=== PATIENT | female | born 1980 | race Caucasian/White ===

== ENCOUNTER 2022-07-24 15:31 | Inpatient (IN) | payer OTHER, SELFPAY ==
[2022-07-24 15:32] VITALS: BP 134/102; PULSE 123; RESP 19; TEMP 37.7; O2SAT 99; BMI 32.5
--- NOTE | 2022-07-24 16:38 | EX.ED.DYSGE1 ---
HPI <ROBERTO Mckinley - Last Filed: 07/24/22 19:52> History of Present Illness Chief Complaint: General Illness Narrative Narrative: Patient presenting today due to right upper quadrant pain that she has had since Wednesday. She also reports nausea and a fever over the past 2 days. She did see her PCP on Wednesday who ordered a right upper quadrant ultrasound that showed dilation of the common bile duct without any inflammation of the gallbladder or gallstones. She denies any history of biliary colic, prior abdominal surgery, and vomiting. She reports a PMH of hepatitis C. PFSH <ROBERTO Mckinley - Last Filed: 07/24/22 19:52> PFSH Medical History Abdominal pain Home Medications buprenorphine 8 mg-naloxone 2 mg sublingual film 2 film sublingual DAILY . 07/24/22 [History Last Taken 07/24/22] hydrochlorothiazide 25 mg tablet 25 mg PO DAILY HTN 07/24/22 [History Last Taken 07/23/22] ibuprofen 200 mg tablet 400 mg PO Q6H PRN Pain 07/24/22 [History Last Taken 07/24/22] Allergy/AdvReac Type Severity Reaction Status Date / Time No Known Allergies Allergy Verified 07/24/22 15:32 Social History Smoking Status: Unknown if ever smoked ROS <ROBERTO Mckinley - Last Filed: 07/24/22 19:52> ROS ED Constitutional Constitutional ED: Reports fever(s); Denies chills or sweats Cardiovascular Cardiovascular: Denies chest pain or palpitations Respiratory/Chest Respiratory/Chest: Denies cough or dyspnea Gastrointestinal Gastrointestinal: Reports abdominal pain and nausea; Denies vomiting Musculoskeletal Musculoskeletal: Denies arthralgias or myalgias Integumentary Denies abscess, Abrasions or rash Neurologic Neurologic: Denies weakness EXAM <ROBERTO Mckinley - Last Filed: 07/24/22 19:52> Physical Exam Const Vital Signs: 07/24/22 15:32 07/24/22 16:44 07/24/22 18:37 Temperature 99.8 F H 100.7 F H Temperature Source Temporal Temporal Pulse Rate 123 H 97 Respiratory Rate 19 H 18 Respiratory Effort Normal Non-Labored Respiratory Pattern Normal Blood Pressure 134/102 H 106/69 Blood Pressure Mean 112 81 Pulse Ox 99 98 Oxygen Delivery Method Room Air Room Air Positive well nourished, well developed and no apparent distress General Appearance ED: well developed HEENT Reports normocephalic and head/scalp atraumatic Mouth ED: Yes moist mucous membranes normal Eyes PERRL and EOMs intact bilaterally Neck full ROM and supple Chest Wall inspection of chest normal Resp normal respiratory effort and clear to auscultation bilaterally Cardio regular rate and regular rhythm GI non-distended and no masses GI Narrative: Right upper quadrant tenderness to palpation, no rigidity or guarding. Palpation: soft Back/Spine normal ROM and normal to inspection Extremity normal to inspection and full ROM Neuro oriented x3, CN's II-XII intact bilaterally, moves all extremities, no focal motor deficits and no sensory deficits noted Sensorium / Orientation: awake and alert Psych mental status grossly normal and thought process normal Skin no rashes or lesions noted and no wounds <Dr. Kaushik Mcpherson MD - Last Filed: 07/24/22 20:10> Physical Exam Const Vital Signs: 07/24/22 15:32 07/24/22 16:44 07/24/22 18:37 Temperature 99.8 F H 100.7 F H Temperature Source Temporal Temporal Pulse Rate 123 H 97 Respiratory Rate 19 H 18 Respiratory Effort Normal Non-Labored Respiratory Pattern Normal Blood Pressure 134/102 H 106/69 Blood Pressure Mean 112 81 Pulse Ox 99 98 Oxygen Delivery Method Room Air Room Air [facility] <ROBERTO Mckinley - Last Filed: 07/24/22 19:52> [facility] Narrative Medical decision making narrative: Patient presenting due to right upper quadrant abdominal pain she has had since Wednesday. She is slightly febrile here. Because we do not have access to the ultrasound that was performed at the clinic clinic, we will reobtain a right upper quadrant ultrasound which does show dilation of the common bile duct. I spoke to Dr. Rose, he recommended obtaining a CT scan of the abdomen pelvis to assess for pancreatitis. Patient has been given IV fluids, Zofran, and morphine. Labs obtained to rule out leukocytosis, anemia, electrolyte abnormality, and assess for elevated liver enzymes. CBC unremarkable, CMP shows a sodium 129, chloride 90, AST 128, ALT 114, alkaline phosphatase 153, bilirubin is WNL. She will be admitted to the hospital to have an MRCP and is comfortable with plan. I have personally performed a face to face assessment of the patient and have reviewed the ELIUD Note. I performed a substantive portion of the visit including all aspects of the following. My saenz findings include: History is remarkable for outpatient ultrasound which revealed a common bile duct of 10 mm. No stones were noted. There was no thickening of the gallbladder wall reportedly and no inflammation. Patient does have intolerance to greasy fried foods. There is family history cholelithiasis. She denies history of pancreatitis. She denies black or maroon-colored stool. She states she has not eaten in 2 days. Exam is remarkable for a BMI of 32.5. She appears uncomfortable. She is tachycardic. HEENT exam is remarkable dry mucosa. Heart is rapid and regular. There is no murmur, gallop or rub. Lungs are clear auscultation. Abdomen is marked for right upper quadrant pain with clinical Dunham sign. Temperature is elevated 99.8. She has had elevated temperatures over the past several days with a Tmax of 100.7. Medical Decision Making ultrasound was repeated since we have no access to the outpatient ultrasound that was done at outside facility. Blood work was obtained to assess for elevated bilirubin, alkaline phosphatase and transaminases. Since the common bile duct is dilated with no visible stone nor is or any evidence of cholelithiasis Dr. Rose was paged to discuss case and discuss ERCP versus MRCP with admission to medicine. Other additions or changes: Case was discussed with Dr. Rose. He requested a CAT scan to evaluate for evidence of pancreatitis. He is aware that the lipase is normal. Case was discussed with Dr. Macias who will admit at. Lab Data Attestation: I reviewed the patient's lab results. Labs: Laboratory Results - last 24 hr 07/24/22 07/24/22 07/24/22 16:50 16:50 16:50 WBC 4.4 RBC 4.64 Hgb 14.1 Hct 40.2 MCV 86.6 MCH 30.4 MCHC 35.1 RDW Std Deviation 38.7 RDW Coeff of Mila 12.2 Plt Count 199 MPV 9.0 Immature Gran % (Auto) 0.500 Neut % (Auto) 84.8 H Lymph % (Auto) 8.1 L [place] % (Auto) 6.1 Eos % (Auto) 0.0 Baso % (Auto) 0.5 Absolute Neuts (auto) 3.8 Absolute Lymphs (auto) 0.36 L Nucleated RBC % 0 Differential Comment SCANNED ESR Sodium 129 L Potassium 3.6 Chloride 95 L Carbon Dioxide 27.0 Anion Gap 7 BUN 8 Creatinine 0.89 Estim Creat Clear Calc 78.66 Est GFR (MDRD) Af Amer 91 Est GFR (MDRD) Non-Af 75 BUN/Creatinine Ratio 9.0 L Glucose 100 Lactic Acid Calcium 8.9 Magnesium Total Bilirubin 0.80 AST 128 H ALT 114 H Alkaline Phosphatase 153 H C-React Prot Ext Range Total Protein 7.8 Albumin 3.3 Globulin 4.5 H Albumin/Globulin Ratio 0.7 L Lipase 21 Serum , Qual NEGATIVE 07/24/22 07/24/22 07/24/22 16:50 16:50 16:50 WBC RBC Hgb Hct MCV MCH MCHC RDW Std Deviation RDW Coeff of Mila Plt Count MPV Immature Gran % (Auto) Neut % (Auto) Lymph % (Auto) [place] % (Auto) Eos % (Auto) Baso % (Auto) Absolute Neuts (auto) Absolute Lymphs (auto) Nucleated RBC % Differential Comment ESR 37 H Sodium Potassium Chloride Carbon Dioxide Anion Gap BUN Creatinine Estim Creat Clear Calc Est GFR (MDRD) Af Amer Est GFR (MDRD) Non-Af BUN/Creatinine Ratio Glucose Lactic Acid Calcium Magnesium 2.2 Total Bilirubin AST ALT Alkaline Phosphatase C-React Prot Ext Range 118.00 H Total Protein Albumin Globulin Albumin/Globulin Ratio Lipase Serum , Qual 07/24/22 18:30 WBC RBC Hgb Hct MCV MCH MCHC RDW Std Deviation RDW Coeff of Mila Plt Count MPV Immature Gran % (Auto) Neut % (Auto) Lymph % (Auto) [place] % (Auto) Eos % (Auto) Baso % (Auto) Absolute Neuts (auto) Absolute Lymphs (auto) Nucleated RBC % Differential Comment ESR Sodium Potassium Chloride Carbon Dioxide Anion Gap BUN Creatinine Estim Creat Clear Calc Est GFR (MDRD) Af Amer Est GFR (MDRD) Non-Af BUN/Creatinine Ratio Glucose Lactic Acid 0.6 Calcium Magnesium Total Bilirubin AST ALT Alkaline Phosphatase C-React Prot Ext Range Total Protein Albumin Globulin Albumin/Globulin Ratio Lipase Serum , Qual Radiography Diagnostic Testing: Clinical Impression(s) from Imaging Studies Gallbladder Ultrasound 07/24/22 17:04 IMPRESSION: There is dilation of the common bile duct. A common bile duct stone is not seen. The CBD diameter is 8.1 mm. Electronically Signed: Michele Stockton MD at 17:57 EDT , <Dr. Kaushik Mcpherson MD - Last Filed: 07/24/22 20:10> MDM MDM Narrative Medical decision making narrative: I have personally performed a face to face assessment of the patient and have reviewed the ELIUD Note. I performed a substantive portion of the visit including all aspects of the following. My saenz findings include: History is remarkable for outpatient ultrasound which revealed a common bile duct of 10 mm. No stones were noted. There was no thickening of the gallbladder wall reportedly and no inflammation. Patient does have intolerance to greasy fried foods. There is family history cholelithiasis. She denies history of pancreatitis. She denies black or maroon-colored stool. She states she has not eaten in 2 days. Exam is remarkable for a BMI of 32.5. She appears uncomfortable. She is tachycardic. HEENT exam is remarkable dry mucosa. Heart is rapid and regular. There is no murmur, gallop or rub. Lungs are clear auscultation. Abdomen is marked for right upper quadrant pain with clinical Dunham sign. Temperature is elevated 99.8. She has had elevated temperatures over the past several days with a Tmax of 100.7. Medical Decision Making ultrasound was repeated since we have no access to the outpatient ultrasound that was done at outside facility. Blood work was obtained to assess for elevated bilirubin, alkaline phosphatase and transaminases. Since the common bile duct is dilated with no visible stone nor is or any evidence of cholelithiasis Dr. Rose was paged to discuss case and discuss ERCP versus MRCP with admission to medicine. Other additions or changes: Case was discussed with Dr. Rose. He requested a CAT scan to evaluate for evidence of pancreatitis. He is aware that the lipase is normal. Case was discussed with Dr. Macias who will admit at. Lab Data Labs: Laboratory Results - last 24 hr 07/24/22 07/24/22 07/24/22 16:50 16:50 16:50 WBC 4.4 RBC 4.64 Hgb 14.1 Hct 40.2 MCV 86.6 MCH 30.4 MCHC 35.1 RDW Std Deviation 38.7 RDW Coeff of Mila 12.2 Plt Count 199 MPV 9.0 Immature Gran % (Auto) 0.500 Neut % (Auto) 84.8 H Lymph % (Auto) 8.1 L [place] % (Auto) 6.1 Eos % (Auto) 0.0 Baso % (Auto) 0.5 Absolute Neuts (auto) 3.8 Absolute Lymphs (auto) 0.36 L Nucleated RBC % 0 Differential Comment SCANNED ESR Sodium 129 L Potassium 3.6 Chloride 95 L Carbon Dioxide 27.0 Anion Gap 7 BUN 8 Creatinine 0.89 Estim Creat Clear Calc 78.66 Est GFR (MDRD) Af Amer 91 Est GFR (MDRD) Non-Af 75 BUN/Creatinine Ratio 9.0 L Glucose 100 Lactic Acid Calcium 8.9 Magnesium Total Bilirubin 0.80 AST 128 H ALT 114 H Alkaline Phosphatase 153 H C-React Prot Ext Range Total Protein 7.8 Albumin 3.3 Globulin 4.5 H Albumin/Globulin Ratio 0.7 L Lipase 21 Serum , Qual NEGATIVE 07/24/22 07/24/22 07/24/22 16:50 16:50 16:50 WBC RBC Hgb Hct MCV MCH MCHC RDW Std Deviation RDW Coeff of Mila Plt Count MPV Immature Gran % (Auto) Neut % (Auto) Lymph % (Auto) [place] % (Auto) Eos % (Auto) Baso % (Auto) Absolute Neuts (auto) Absolute Lymphs (auto) Nucleated RBC % Differential Comment ESR 37 H Sodium Potassium Chloride Carbon Dioxide Anion Gap BUN Creatinine Estim Creat Clear Calc Est GFR (MDRD) Af Amer Est GFR (MDRD) Non-Af BUN/Creatinine Ratio Glucose Lactic Acid Calcium Magnesium 2.2 Total Bilirubin AST ALT Alkaline Phosphatase C-React Prot Ext Range 118.00 H Total Protein Albumin Globulin Albumin/Globulin Ratio Lipase Serum , Qual 07/24/22 18:30 WBC RBC Hgb Hct MCV MCH MCHC RDW Std Deviation RDW Coeff of Mila Plt Count MPV Immature Gran % (Auto) Neut % (Auto) Lymph % (Auto) [place] % (Auto) Eos % (Auto) Baso % (Auto) Absolute Neuts (auto) Absolute Lymphs (auto) Nucleated RBC % Differential Comment ESR Sodium Potassium Chloride Carbon Dioxide Anion Gap BUN Creatinine Estim Creat Clear Calc Est GFR (MDRD) Af Amer Est GFR (MDRD) Non-Af BUN/Creatinine Ratio Glucose Lactic Acid 0.6 Calcium Magnesium Total Bilirubin AST ALT Alkaline Phosphatase C-React Prot Ext Range Total Protein Albumin Globulin Albumin/Globulin Ratio Lipase Serum , Qual Radiography Diagnostic Testing: Clinical Impression(s) from Imaging Studies Gallbladder Ultrasound 07/24/22 17:04 IMPRESSION: There is dilation of the common bile duct. A common bile duct stone is not seen. The CBD diameter is 8.1 mm. Electronically Signed: Michele Stockton MD at 17:57 EDT , Management Discussion w/another healthcare provider: Hospitalist (Documented the MDM portion of the chart) and [employer] (Documented in the MDM portion of the chart) Discharge Plan Dx/Rx/DC Orders Clinical Impression: Elevated liver enzymes, Abdominal pain, Acute hyponatremia, Common bile duct dilation Disposition Disposition: Acute Care Hospital [facility]
--- NOTE | 2022-07-24 17:04 | US_ITS ---
STUDY: ABDOMINAL ULTRASOUND - RIGHT UPPER QUADRANT REASON FOR VISIT: Female, 41 years old. ABDOMEN PAIN RUQ pain TECHNIQUE: Ultrasound evaluation of the right upper quadrant was performed with real-time and static armendariz-scale imaging. TECHNICAL QUALITY: Adequate. COMPARISON: None FINDINGS: Liver: There is normal echogenicity of the liver. The bile ducts are within normal limits. There is hepatic color flow. The direction of portal flow is hepatopetal. There is no demonstrated mass lesion. Gallbladder: Normal distended gallbladder. The gallbladder wall measures 1.8 mm. There is a negative sonographic Dunham''s sign. There is no pericholecystic fluid. There are no gallstones. Common Bile Duct (C.B.D.): The common bile duct measures ( in mm): 8.1 Pancreas: Normal size of the head, body of the pancreas. There is normal echogenicity of the pancreas. There is no demonstrated pancreatic mass or cyst. Right Kidney: Normal size of the right kidney. The right kidney measures 9.9 cm. . Normal renal cortex. There is no demonstrated renal mass or cyst. There is no right hydronephrosis. Aorta: It is not visualized. There is too much overlying bowel gas. . US/Gallbladder IMPRESSION: There is dilation of the common bile duct. A common bile duct stone is not seen. The CBD diameter is 8.1 mm. Electronically Signed: Michele Stockton MD at 17:57 EDT ,
[2022-07-24 17:12] LABS: Absolute Lymphocyte Count 0.36 X10^3/uL (0.83-4.51); Absolute Neutrophil Count 3.8 X10^3/uL (2.0-7.7); Basophil# 0.02 X10^3/uL; Basophil% 0.5 % (0-1); Hematocrit 40.2 % (37-47); Hemoglobin 14.1 g/dL (12.0-15.0); Lymphocyte # 0.36 X10^3/ul (0.83-4.51); Lymphocyte % 8.1 % (19-41); Mean Corp Hgb Conc 35.1 g/dL (32-36); Mean Corpuscular Hgb 30.4 pg (27.0-32.0); Mean Corpuscular Volume 86.6 fL (81-99); Monocyte# 0.27 X10^3/uL; Monocyte% 6.1 % (0-10); NRBC Flagged by Analyzer 0 % (0-5); Neutrophil # 3.77 X10^3/uL (2.7-7.7); Neutrophil % 84.8 % (47-70); POSITIVE DIFFERENTIAL YES; Platelet Count 199 K/mm3 (150-450); RBC Distribution Width CV 12.2 % (11.6-14.6); RBC Distribution Width SD 38.7 fl (35.1-43.9); Red Blood Count 4.64 M/mm3 (4.2-5.4); White Blood Count 4.4 K/mm3 (4.4-11.0)
[2022-07-24 17:14] LABS: Differential Indicated SCAN CRITERIA MET
[2022-07-24] MEDS: Ondansetron 4 MG/2 ML Vial IV (17:17)
[2022-07-24] MEDS: Morphine 4 MG/ML Syringe IV (17:17)
[2022-07-24 17:24] LABS: ALB/GLOB Ratio 0.7 RATIO (0.9-2.4); AST(SGOT) 128 U/L (15-37); Alanine Aminotransfer ALT/SGPT 114 U/L (13-56); Albumin, Serum 3.3 g/dL (3.2-5.0); Alkaline Phosphatase 153 U/L (45-117); Anion Gap 7 (5-15); BUN 8 mg/dL (7-18); Calcium,Total 8.9 mg/dL (8.5-10.1); Chloride 95 mmol/L (98-107); Creatinine, Serum 0.89 mg/dL (0.55-1.02); EST Glomerular Filtration Rate 75 mL/min (>60); Est Glom Filt Rate - Afr Amer 91 mL/min (>60); Estimated Creatinine Clearance 78.66 ml/min; Globulin 4.5 g/dL (2.2-4.2); Glucose 100 mg/dL (74-106); Lipase 21 U/L (13-75); Potassium 3.6 mmol/L (3.5-5.1); Protein, Total 7.8 g/dL (6.4-8.2); Sodium Level 129 mmol/L (136-145)
[2022-07-24 17:49] LABS: Differential Comment SCANNED
--- NOTE | 2022-07-24 18:16 | CT_ITS ---
STUDY: CT Abdomen And Pelvis W/ Contrast Injection 07/24/2022 8:20 PM REASON FOR EXAM: Female, 41 years old. ABDOMINAL PAIN abdominal pain TECHNIQUE: Transaxial images were obtained without oral contrast, and IV 100mL [id number] intravenous contrast. Individualized dose optimization techniques were used for this CT. COMPARISON: Ultrasound done earlier today. FINDINGS: The visualized lung bases are unremarkable. The visualized portions of the heart are within normal limits. There is intrahepatic ductal dilation. Unremarkable gallbladder and extrahepatic biliary system. Unremarkable spleen. Unremarkable pancreas.There is dilation of the common bile duct. A common bile duct stone is not seen. The CBD diameter is 7.2 mm. Unremarkable bilateral adrenal glands. No acute findings of the right kidney. No acute findings of the left kidney. Focal wall thickening of the antrum of stomach. This can suggest a gastritis. Unremarkable small intestine. Unremarkable colon. The appendix is visualized and appears unremarkable. Subcentimeter lymph nodes around the pancreas and stomach. There are no acute findings of the abdominal aorta. Unremarkable inferior vena cava. Subcentimeter mesenteric lymph nodes. Unremarkable urinary bladder. 39mm exophytic lesion extending off the fundus of the uterus. This has the appearance of a fibroid. An intrauterine device is identified within the uterus. 10mm fatty lesion in the right ovary suggesting a dermoid. It is -21HU. There is an umbilical hernia containing fat. There are bilateral pars articularis defects at L5-S1. There is a Grade 1 anterolisthesis of L5 on S1. CT/Abdomen/Pelvis W IV Cont ONLY IMPRESSION: (NOT LISTED IN ORDER OF SIGNIFICANCE) Gastritis. There is intrahepatic ductal dilation. There are no gallstones. There is dilation of the common bile duct. A common bile duct stone is not seen. The CBD diameter is 7.2 mm. MRCP can further evaluate. 10mm fatty lesion in the right ovary suggesting a dermoid. Fibroid uterus. Other findings as above. Electronically Signed: Michele Stockton MD at 20:25 EDT ,
[2022-07-24] MEDS: 0.9% Normal Saline 1,000 ML 999 ML IV (18:29)
[2022-07-24 18:37] VITALS: BP 106/69; PULSE 97; RESP 18; TEMP 38.2; O2SAT 98
[2022-07-24 18:55] LABS: Internal QC Validated? YES +Cl - CLEAR BKGD; Pregnancy, Serum, hCG Quali. NEGATIVE Negative
--- NOTE | 2022-07-24 18:57 | PCM.HP.STD ---
HPI - General General Date of Admission: 07/24/22 Date of Service: 07/24/22 Chief Complaint: Abdominal pain, nausea for last 5 days. Constipation and fever HPI Narrative SEBASTIÁN LEE, is a 41 F started having nausea and sudden onset right upper quadrant abdominal pain on 07/20/2022. She denies prior history of gallbladder or hepatobiliary or pancreatic issues or abdominal pain like this in the past. She was diagnosed with hepatitis C about 10 years ago. She had history of IVDA and she quit 14 years ago. She is reluctant talking about that. Abdominal pain is started about 10/density, right subcostal margin and then became generalized and moved to the right upper chest. She claims pain is constant but has eased over last 5 days. She also having fever for last 3 to 4 days and she measures it. She said it stays between 99.7 to 100 ?F. She also has associated nausea but denies vomiting, hematemesis melena. She has constipation has not moved bowels since 07/19/2022. Patient recently started taking ibuprofen for abdominal pain but is not getting better. In ED, she was tachycardic but afebrile. Liver chemistry reviewed and shows elevated liver enzymes, total bilirubin and alkaline phosphatase. She had ultrasound as an outpatient results dilated CBD 10 mm but no stone and was sent to ED for further work-up. Past medical history: Hypertension on HCTZ. IVDA/substance use disorder in the past on buprenorphine. Social history: She denies chronic alcohol use. She denies a smoking. History of polysubstance use as mentioned above. Family history denies history of hepatobiliary cancer or chronic pancreatitis in the family. On her mother side, she had cholecystectomy in few family members. ON LICENSE OF [facility] Medical History Abdominal pain Home Medications buprenorphine 8 mg-naloxone 2 mg sublingual film 2 film sublingual DAILY . 07/24/22 [History Last Taken 07/24/22] hydrochlorothiazide 25 mg tablet 25 mg PO DAILY HTN 07/24/22 [History Last Taken 07/23/22] ibuprofen 200 mg tablet 400 mg PO Q6H PRN Pain 07/24/22 [History Last Taken 07/24/22] Allergy/AdvReac Type Severity Reaction Status Date / Time No Known Allergies Allergy Verified 07/24/22 15:32 Social History Smoking Status: Unknown if ever smoked ROS ROS Narrative Constitutional: Reports fatigue and weakness. Abdominal pain and fever. HEENT: Reports systems reviewed and no addt'l complaints, except as documented Respiratory/Chest: No acute shortness of breath or respiratory distress or wheezing. CVS: No chest pain tightness. Denies coronary artery disease or chronic cardiopulmonary disease. Gastrointestinal: As described in HPI. Genitourinary: No hematuria. Denies burning urination or new urinary tract symptoms Musculoskeletal: Denies acute joint pain or limited range of motion. No acute injury Neurologic: Denies seizure-like symptoms. skin: No ulcer. No rash Endocrinology: Reports systems reviewed and no addt'l complaints, except as documented Hematologic/Lymphatic: Reports systems reviewed and no addt'l complaints, except as documented Rest 14 ROS are negative except as mentioned in HPI Vital Signs Vital Signs Vital Signs: 07/24/22 15:32 07/24/22 16:44 07/24/22 18:37 Temperature 99.8 F H 100.7 F H Temperature Source Temporal Temporal Pulse Rate 123 H 97 Respiratory Rate 19 H 18 Respiratory Effort Normal Non-Labored Respiratory Pattern Normal Blood Pressure 134/102 H 106/69 Blood Pressure Mean 112 81 Pulse Ox 99 98 Oxygen Delivery Method Room Air Room Air Weight Weight: 201 lb 6.4 oz Body Mass Index (BMI) 32.5 Physical Exam Narrative Physical exam General: Alert, Oriented x3, Cooperative HEENT: No icterus. Atraumatic, PERRLA, EOMI, Normocephalic Oral: Oral mucosa dry. No Gingival or Mucosal Lesions/ Ulcerations Neck: Supple, No JVD, Negative Carotid Bruits Lungs: Air entry diminished in bilateral lung bases. No crepitation/rhonchi Cardiovascular: Sinus tachycardia, Normal S1, Normal S2, No murmurs Abdomen: Bowel Sounds Present, Soft, tenderness present over right upper quadrant under rib. Liver not enlarged. No palpable mass. No palpable thrill/ascites. No splenomegaly. : No renal angle tenderness. No suprapubic tenderness. Extremities: No edema, Capillary Refill Less than 3 Seconds Skin: No rashes, No breakdown Musculoskeletal: No Tenderness to Palpation of Joints or Extremities Neurological: Cranial nerves II-XII grossly intact, DTR 2+/4 and Symmetrical, Neuro grossly intact Psych/Mental Status: Flat affect. Results Lab / Micro Data Result Diagrams: 07/24/22 16:50 07/24/22 16:50 Labs: Laboratory Results - last 24 hr 07/24/22 16:50: WBC 4.4, RBC 4.64, Hgb 14.1, Hct 40.2, MCV 86.6, MCH 30.4, MCHC 35.1, RDW Std Deviation 38.7, RDW Coeff of Mila 12.2, Plt Count 199, MPV 9.0, Immature Gran % (Auto) 0.500, Neut % (Auto) 84.8 H, Lymph % (Auto) 8.1 L, [place] % (Auto) 6.1, Eos % (Auto) 0.0, Baso % (Auto) 0.5, Absolute Neuts (auto) 3.8, Absolute Lymphs (auto) 0.36 L, Nucleated RBC % 0, Differential Comment SCANNED 07/24/22 16:50: Sodium 129 L, Potassium 3.6, Chloride 95 L, Carbon Dioxide 27.0, Anion Gap 7, BUN 8, Creatinine 0.89, Estim Creat Clear Calc 78.66, Est GFR (MDRD) Af Amer 91, Est GFR (MDRD) Non-Af 75, BUN/Creatinine Ratio 9.0 L, Glucose 100, Calcium 8.9, Total Bilirubin 0.80, AST 128 H, ALT 114 H, Alkaline Phosphatase 153 H, Total Protein 7.8, Albumin 3.3, Globulin 4.5 H, Albumin/Globulin Ratio 0.7 L, Lipase 21 07/24/22 16:50: Serum , Qual NEGATIVE Radiology Impression Gallbladder Ultrasound 07/24/22 17:04 IMPRESSION: There is dilation of the common bile duct. A common bile duct stone is not seen. The CBD diameter is 8.1 mm. Electronically Signed: Michele Stockton MD at 17:57 EDT , Assessment & Plan Assessment/Plan (1) Cholangitis: (2) Acute liver disease: PLAN: Plan This is 41-year-old female being admitted for work-up of acute liver injury and dilated CBD. 1. Acute liver injury with suspected acute cholangitis: Patient has mixed hepatocellular and cholestatic liver injury pattern. No prior liver chemistry to compare. Patient is being admitted to MedSurg floor. With fever and elevated liver chemistries high suspicion of acute cholangitis. Serum magnesium normal. Lactic acid 0.6. Lipase normal. Serum test negative. ESR and CRP elevated. IV fluid normal saline +20 mEq KCl. Monitor abdominal pain, liver chemistry electrolytes daily. GI consult. Right upper quadrant shows normal echogenicity of liver, bile duct within normal limit, hepatopetal flow and no demonstrated mass lesion. GB wall 1.8 mm, negative sonographic Dunham sign. No pericholecystic fluid or no gallstones. CBD dilated 8.[address] abdomen pelvis with IV contrast ordered by ED physician. MRCP ordered for tomorrow AM. Avoid hepatotoxic medications including NSAIDs. She took ibuprofen at home for pain control. Tylenol only for fever. Opioids/morphine for pain control. 2. Hypotonic hypovolemic hyponatremia: Serum sodium is 129. Patient looks dehydrated. On IV fluid normal saline. K3.6 on low normal limit. K. Dur 1 dose ordered. Chronic hepatitis C: She is stated she has never been treated for. Outpatient follow-up and management. 3. Past history of IVDA: She quit substance use about 14 years ago. VTE prophylaxis low risk. Bilateral SCDs Full code. 07/24/22 16:50: WBC 4.4, RBC 4.64, Hgb 14.1, Hct 40.2, MCV 86.6, MCH 30.4, MCHC 35.1, RDW Std Deviation 38.7, RDW Coeff of Mila 12.2, Plt Count 199, MPV 9.0, Immature Gran % (Auto) 0.500, Neut % (Auto) 84.8 H, Lymph % (Auto) 8.1 L, [place] % (Auto) 6.1, Eos % (Auto) 0.0, Baso % (Auto) 0.5, Absolute Neuts (auto) 3.8, Absolute Lymphs (auto) 0.36 L, Nucleated RBC % 0, Differential Comment SCANNED 07/24/22 16:50: Sodium 129 L, Potassium 3.6, Chloride 95 L, Carbon Dioxide 27.0, Anion Gap 7, BUN 8, Creatinine 0.89, Estim Creat Clear Calc 78.66, Est GFR (MDRD) Af Amer 91, Est GFR (MDRD) Non-Af 75, BUN/Creatinine Ratio 9.0 L, Glucose 100, Calcium 8.9, Total Bilirubin 0.80, AST 128 H, ALT 114 H, Alkaline Phosphatase 153 H, Total Protein 7.8, Albumin 3.3, Globulin 4.5 H, Albumin/Globulin Ratio 0.7 L, Lipase 21 07/24/22 16:50: Serum , Qual NEGATIVE 07/24/22 16:50: ESR 37 H 07/24/22 16:50: C-React Prot Ext Range 118.00 H 07/24/22 16:50: Magnesium 2.2 07/24/22 18:30: Lactic Acid 0.6
[2022-07-24 18:59] VITALS: BP 106/69; PULSE 97; RESP 18; TEMP 38.2; O2SAT 98
[2022-07-24 19:05] LABS: Erythrocyte Sedimentation Rate 37 mm/hr (0-30)
[2022-07-24 19:11] LABS: Lactic Acid 0.6 mmol/L (0.4-1.9)
[2022-07-24 19:21] LABS: Magnesium 2.2 mg/dL (1.6-2.6)
[2022-07-24 20:52] VITALS: BP 98/63; PULSE 94; RESP 16; TEMP 38.2; O2SAT 99
[2022-07-24 21:07] VITALS: BMI 32.5
--- NOTE | 2022-07-24 21:16 | CON.PCM.GI_ITS ---
HPI Consult Data Date of Consult: 07/24/22 HPI Narrative Reason for Consultation: Choledocholithiasis HPI Narrative: SEBASTIÁN LEE, is a 41 F who presented to the ED having nausea and sudden onset right upper quadrant abdominal pain on 07/20/2022.? She denies prior history of gallbladder or hepatobiliary or pancreatic issues or abdominal pain like this in the past.? She was diagnosed with hepatitis C about 10 years ago.? She had history of IVDA and she quit 14 years ago.? She is reluctant talking about that. Abdominal pain is started about 10/density, right subcostal margin and then became generalized and moved to the right upper chest.? She claims pain is constant but has eased over last 5 days.? She also having fever for last 3 to 4 days and she measures it.? She said it stays between 99.7 to 100 ?F.? She also has associated nausea but denies vomiting, hematemesis melena.? She has constipation has not moved bowels since 07/19/2022. Patient recently started taking ibuprofen for abdominal pain but is not getting better. In ED, she was tachycardic but afebrile.? Liver chemistry reviewed and shows elevated liver enzymes, total bilirubin and alkaline phosphatase. She had ultrasound as an outpatient results dilated CBD 10 mm but no stone and was sent to ED for further work-up. [facility] Medical History Abdominal pain Home Medications buprenorphine 8 mg-naloxone 2 mg sublingual film 2 film sublingual DAILY . 07/24/22 [History Last Taken 07/24/22] hydrochlorothiazide 25 mg tablet 25 mg PO DAILY HTN 07/24/22 [History Last Taken 07/23/22] ibuprofen 200 mg tablet 400 mg PO Q6H PRN Pain 07/24/22 [History Last Taken 07/24/22] Allergy/AdvReac Type Severity Reaction Status Date / Time No Known Allergies Allergy Verified 07/24/22 15:32 Social History Smoking Status: Unknown if ever smoked ROS ROS Narrative Constitutional: Reports fatigue and weakness. Abdominal pain and fever. HEENT: Reports systems reviewed and no addt'l complaints, except as documented Respiratory/Chest: No acute shortness of breath or respiratory distress or wheezing. CVS: No chest pain tightness. Denies coronary artery disease or chronic cardiopulmonary disease. Gastrointestinal: As described in HPI. Genitourinary: No hematuria. Denies burning urination or new urinary tract symptoms Musculoskeletal: Denies acute joint pain or limited range of motion. No acute injury Neurologic: Denies seizure-like symptoms. skin: No ulcer. No rash Endocrinology: Reports systems reviewed and no addt'l complaints, except as documented Hematologic/Lymphatic: Reports systems reviewed and no addt'l complaints, except as documented Rest 14 ROS are negative except as mentioned in HPI Physical Exam Narrative General: Alert, Oriented x3, Cooperative, No apparent distress HEENT: Atraumatic, PERRLA, EOMI, Normocephalic Oral: Moist Mucosa Neck: Supple, No JVD Lungs: Clear to auscultation, Normal air movement, No rhonchi, No wheeze, No rales Cardiovascular: Regular rate, Regular Rhythm, Normal S1, Normal S2, No murmurs Abdomen: Soft, Non Tender, Non-Distended, No Hepato-splenomegaly Extremities: No edema, Capillary Refill Less than 3 Seconds Skin: No rashes, No breakdown Musculoskeletal: No Tenderness to Palpation of Joints or Extremities Neurological: Cranial nerves II-XII grossly intact, Motor Exam 5/5 strength throughout, Sensory exam intact to light touch and pain Psych/Mental Status: Flat Lab / Micro Data Result Diagrams: 07/25/22 05:54 07/25/22 05:54 Labs: Laboratory Results - last 24 hr 07/25/22 05:54: WBC 4.2 L, RBC 4.19 L, Hgb 12.6, Hct 36.4 L, MCV 86.9, MCH 30.1, MCHC 34.6, RDW Std Deviation 39.8, RDW Coeff of Mila 12.4, Plt Count 182, MPV 9.1, Immature Gran % (Auto) 0.500, Neut % (Auto) 78.9 H, Lymph % (Auto) 10.9 L, [place] % (Auto) 9.3, Eos % (Auto) 0.2, Baso % (Auto) 0.2, Absolute Neuts (auto) 3.3, Absolute Lymphs (auto) 0.46 L, Nucleated RBC % 0, Differential Comment SCANNED, Diff Path Review May foll 06/10/23 05:54: Sodium 136, Potassium 3.8, Chloride 105, Carbon Dioxide 26.0, Anion Gap 5, BUN 6 L, Creatinine 0.63, Estim Creat Clear Calc 111.12, Est GFR (MDRD) Af Amer 135, Est GFR (MDRD) Non-Af 112, BUN/Creatinine Ratio 9.6 L, Glucose 94, Calcium 8.2 L, Total Bilirubin 0.90, AST 151 H, ALT 119 H, Alkaline Phosphatase 150 H, Total Protein 6.3 L, Albumin 2.7 L, Globulin 3.6, Albumin/Globulin Ratio 0.8 L Radiology Impression MRCP 07/25/22 05:55 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 No stricture or stone. Electronically Signed: Eulogio Urbina MD at 13:27 EDT , Assessment & Plan Assessment/Plan (1) Cholangitis: (2) Acute liver disease: PLAN: Plan This is 41-year-old female being admitted for work-up of acute liver injury and dilated CBD. 1. Acute liver injury with suspected acute cholangitis: Patient has mixed hepatocellular and cholestatic liver injury pattern. No prior liver chemistry to compare. Patient is being admitted to MedSurg floor. With fever and elevated liver chemistries high suspicion of acute cholangitis. Serum magnesium normal. Lactic acid 0.6. Lipase normal. Serum test negative. ESR and CRP elevated. IV fluid normal saline +20 mEq KCl. Monitor abdominal pain, liver chemistry electrolytes daily. GI consult. Right upper quadrant shows normal echogenicity of liver, bile duct within normal limit, hepatopetal flow and no demonstrated mass lesion. GB wall 1.8 mm, negative sonographic Dunham sign. No pericholecystic fluid or no gallstones. CBD dilated 8.[address] abdomen pelvis with IV contrast ordered by ED physician. MRCP ordered for tomorrow AM. Avoid hepatotoxic medications including NSAIDs. She took ibuprofen at home for pain control. Tylenol only for fever. Opioids/morphine for pain control. 2. Hypotonic hypovolemic hyponatremia: Serum sodium is 129. Patient looks dehydrated. On IV fluid normal saline. K3.6 on low normal limit. K. Dur 1 dose ordered. Chronic hepatitis C: She is stated she has never been treated for. Outpatient follow-up and management. 3. Past history of IVDA: She quit substance use about 14 years ago. Charges/Coding Visit Charges Inpatient E&M: 64538 Init Hosp L3
[2022-07-24 21:21] VITALS: BP 127/68; PULSE 98; RESP 18; TEMP 38.7; O2SAT 94
[2022-07-24] MEDS: Acetaminophen 325 MG Tablet 650 MG PO (23:01)
[2022-07-24] MEDS: Potassium Chloride Oral Tablet 20 MEQ 40 MEQ PO (23:02)
[2022-07-25] MEDS: Ondansetron 4 MG/2 ML Vial IV ×5 (00:19→23:58)
[2022-07-25] MEDS: Morphine 4 MG/ML Syringe IV (00:19)
[2022-07-25] MEDS: KCL 20MEQ in 0.9% NS 20 MEQ/1,000 ML IV.SOLN. 100 MEQ IV ×2 (00:23→11:49)
[2022-07-25] MEDS: 0.9% Saline Lock 10 ML Syringe IV ×4 (00:24→18:41)
[2022-07-25 00:43] VITALS: BP 121/75; PULSE 96; RESP 18; TEMP 37.3; O2SAT 96
[2022-07-25 03:30] VITALS: BP 104/77; PULSE 84; RESP 18; TEMP 36.7; O2SAT 96
--- NOTE | 2022-07-25 05:55 | MRI_ITS ---
STUDY: MR CHOLANGIOPANCREATOGRAPHY (MRCP) REASON FOR EXAM: Female, 41 years old. Dilated CBD without stone, ruq pain TECHNIQUE: Standard MRCP technique was utilized. 3-D reconstructions were performed. COMPARISON: CT and ultrasound 07/24/2022 FINDINGS: Gall Bladder: Normal with no distention or demonstrated fixed intraluminal filling defect. Cystic duct: Normal with no demonstrated fixed filling defect. Intrahepatic ducts: Normal visualized intrahepatic ducts with no demonstrated fixed filling defect, dilation or stricture. Common hepatic duct: Fusiform dilatation measuring up to 8 mm in diameter likely consistent with a type I choledochal cyst. No stricture or filling defect to suggest stone. Common bile duct: Normal with no demonstrated fixed filling defect, dilation or stricture. Pancreatic duct: Normal with no demonstrated fixed filling defect, dilation or stricture. 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 No stricture or stone. Electronically Signed: Eulogio Urbina MD at 13:27 EDT ,
--- NOTE | 2022-07-25 05:55 | EKG12_ITS ---
Test Reason : AM EKG Blood Pressure : / mmHG Vent. Rate : 084 BPM Atrial Rate : 084 BPM P-R Int : 206 ms QRS Dur : 090 ms QT Int : 404 ms P-R-T Axes : 050 -09 009 degrees QTc Int : 477 ms Normal sinus rhythm Normal ECG No previous ECGs available Confirmed by SHELDON PERDOMO, JIE ([id number]), society editor XU GARCES ([id number]) on 07/28/2022 9:44:41 AM Referred By: AWA Confirmed By:JIE CHUNG MD
[2022-07-25 06:48] LABS: Absolute Lymphocyte Count 0.46 X10^3/uL (0.83-4.51); Absolute Neutrophil Count 3.3 X10^3/uL (2.0-7.7); Basophil# 0.01 X10^3/uL; Basophil% 0.2 % (0-1); Eosinophil# 0.01 X10^3/uL; Eosinophils% 0.2 % (0-5); Hematocrit 36.4 % (37-47); Hemoglobin 12.6 g/dL (12.0-15.0); Lymphocyte # 0.46 X10^3/ul (0.83-4.51); Lymphocyte % 10.9 % (19-41); Mean Corp Hgb Conc 34.6 g/dL (32-36); Mean Corpuscular Hgb 30.1 pg (27.0-32.0); Mean Corpuscular Volume 86.9 fL (81-99); Mean Platelet Vol. 9.1 fl (6.2-12.0); Monocyte# 0.39 X10^3/uL; Monocyte% 9.3 % (0-10); NRBC Flagged by Analyzer 0 % (0-5); Neutrophil # 3.32 X10^3/uL (2.7-7.7); Neutrophil % 78.9 % (47-70); POSITIVE DIFFERENTIAL YES; Platelet Count 182 K/mm3 (150-450); RBC Distribution Width CV 12.4 % (11.6-14.6); RBC Distribution Width SD 39.8 fl (35.1-43.9); Red Blood Count 4.19 M/mm3 (4.2-5.4); White Blood Count 4.2 K/mm3 (4.4-11.0)
[2022-07-25 07:00] LABS: Differential Indicated SCAN CRITERIA MET
[2022-07-25 07:23] LABS: ALB/GLOB Ratio 0.8 RATIO (0.9-2.4); AST(SGOT) 151 U/L (15-37); Alanine Aminotransfer ALT/SGPT 119 U/L (13-56); Albumin, Serum 2.7 g/dL (3.2-5.0); Alkaline Phosphatase 150 U/L (45-117); Anion Gap 5 (5-15); BUN 6 mg/dL (7-18); BUN/Creat Ratio 9.6 RATIO (10-20); Calcium,Total 8.2 mg/dL (8.5-10.1); Chloride 105 mmol/L (98-107); Creatinine, Serum 0.63 mg/dL (0.55-1.02); EST Glomerular Filtration Rate 112 mL/min (>60); Est Glom Filt Rate - Afr Amer 135 mL/min (>60); Estimated Creatinine Clearance 111.12 ml/min; Globulin 3.6 g/dL (2.2-4.2); Glucose 94 mg/dL (74-106); Potassium 3.8 mmol/L (3.5-5.1); Protein, Total 6.3 g/dL (6.4-8.2); Sodium Level 136 mmol/L (136-145)
[2022-07-25] MEDS: hydroCHLOROthiazide 25 MG Tablet PO (08:43)
[2022-07-25] MEDS: Acetaminophen 325 MG Tablet 650 MG PO ×2 (08:44→16:13)
[2022-07-25 08:50] VITALS: BP 116/68; PULSE 77; RESP 18; TEMP 36.9; O2SAT 96
[2022-07-25 09:00] LABS: Differential Comment SCANNED
--- NOTE | 2022-07-25 09:38 | PCM.PN.HOSP ---
Subjective Subjective Abdominal pain is improved. MRI is pending for today Objective Data Objective Data Vital Signs: Vital Signs Temp Pulse Resp BP Pulse Ox O2 Del Method 98.5 F 77 18 116/68 96 Room Air 07/25/22 08:50 07/25/22 08:50 07/25/22 08:50 07/25/22 08:50 07/25/22 08:50 07/25/22 08:50 Oxygen Delivery Method Room Air Weight: 201 lb 6.4 oz Body Mass Index (BMI) 32.5 Intake & Output: Intake and Output for Last 24 Hours 07/24/22 07/25/22 07/26/22 03:59 03:59 03:59 Intake Total 1050 / 1050 Balance 1050 / 1050 Lab / Micro Data Result Diagrams: 07/25/22 05:54 07/25/22 05:54 Labs: Laboratory Results - last 24 hr 07/24/22 16:50: WBC 4.4, RBC 4.64, Hgb 14.1, Hct 40.2, MCV 86.6, MCH 30.4, MCHC 35.1, RDW Std Deviation 38.7, RDW Coeff of Mila 12.2, Plt Count 199, MPV 9.0, Immature Gran % (Auto) 0.500, Neut % (Auto) 84.8 H, Lymph % (Auto) 8.1 L, [place] % (Auto) 6.1, Eos % (Auto) 0.0, Baso % (Auto) 0.5, Absolute Neuts (auto) 3.8, Absolute Lymphs (auto) 0.36 L, Nucleated RBC % 0, Differential Comment SCANNED 07/24/22 16:50: Sodium 129 L, Potassium 3.6, Chloride 95 L, Carbon Dioxide 27.0, Anion Gap 7, BUN 8, Creatinine 0.89, Estim Creat Clear Calc 78.66, Est GFR (MDRD) Af Amer 91, Est GFR (MDRD) Non-Af 75, BUN/Creatinine Ratio 9.0 L, Glucose 100, Calcium 8.9, Total Bilirubin 0.80, AST 128 H, ALT 114 H, Alkaline Phosphatase 153 H, Total Protein 7.8, Albumin 3.3, Globulin 4.5 H, Albumin/Globulin Ratio 0.7 L, Lipase 21 07/24/22 16:50: Serum , Qual NEGATIVE 07/24/22 16:50: ESR 37 H 07/24/22 16:50: C-React Prot Ext Range 118.00 H 07/24/22 16:50: Magnesium 2.2 07/24/22 18:30: Lactic Acid 0.6 07/25/22 05:54: WBC 4.2 L, RBC 4.19 L, Hgb 12.6, Hct 36.4 L, MCV 86.9, MCH 30.1, MCHC 34.6, RDW Std Deviation 39.8, RDW Coeff of Mila 12.4, Plt Count 182, MPV 9.1, Immature Gran % (Auto) 0.500, Neut % (Auto) 78.9 H, Lymph % (Auto) 10.9 L, [place] % (Auto) 9.3, Eos % (Auto) 0.2, Baso % (Auto) 0.2, Absolute Neuts (auto) 3.3, Absolute Lymphs (auto) 0.46 L, Nucleated RBC % 0, Differential Comment SCANNED, Diff Path Review June07/25/22 05:54: Sodium 136, Potassium 3.8, Chloride 105, Carbon Dioxide 26.0, Anion Gap 5, BUN 6 L, Creatinine 0.63, Estim Creat Clear Calc 111.12, Est GFR (MDRD) Af Amer 135, Est GFR (MDRD) Non-Af 112, BUN/Creatinine Ratio 9.6 L, Glucose 94, Calcium 8.2 L, Total Bilirubin 0.90, AST 151 H, ALT 119 H, Alkaline Phosphatase 150 H, Total Protein 6.3 L, Albumin 2.7 L, Globulin 3.6, Albumin/Globulin Ratio 0.8 L Radiography Diagnostic Testing: Radiology Impression Gallbladder Ultrasound 07/24/22 17:04 IMPRESSION: There is dilation of the common bile duct. A common bile duct stone is not seen. The CBD diameter is 8.1 mm. Electronically Signed: Michele Stockton MD at 17:57 EDT , Abdomen/Pelvis CT 07/24/22 18:16 IMPRESSION: (NOT LISTED IN ORDER OF SIGNIFICANCE) Gastritis. There is intrahepatic ductal dilation. There are no gallstones. There is dilation of the common bile duct. A common bile duct stone is not seen. The CBD diameter is 7.2 mm. MRCP can further evaluate. 10mm fatty lesion in the right ovary suggesting a dermoid. Fibroid uterus. Other findings as above. Electronically Signed: Michele Stockton MD at 20:25 EDT , Physical Exam Narrative General: Alert, Oriented x3, Cooperative, No apparent distress HEENT: Atraumatic, PERRLA, EOMI, Normocephalic Oral: Moist Mucosa Neck: Supple, No JVD Lungs: Clear to auscultation, Normal air movement, No rhonchi, No wheeze, No rales Cardiovascular: Regular rate, Regular Rhythm, Normal S1, Normal S2, No murmurs Abdomen: Soft, Non Tender, Non-Distended, No Hepato-splenomegaly Extremities: No edema, Capillary Refill Less than 3 Seconds Skin: No rashes, No breakdown Musculoskeletal: No Tenderness to Palpation of Joints or Extremities Neurological: Cranial nerves II-XII grossly intact, Motor Exam 5/5 strength throughout, Sensory exam intact to light touch and pain Psych/Mental Status: Flat Assessment & Plan Assessment/Plan (1) Cholangitis: (2) Acute liver disease: PLAN: Plan 1. Acute cholangitis due to common bile duct stone ? MRCP is pending ? Plan for possible ERCP today ? Continue with IV antibiotics ? Maintain n.p.o. ? Continue with IV fluid this ? Continue with pain medication 2. Chronic hepatitis C ? She is never been treated she does have a remote history of IV drug use ? Would recommend outpatient follow-up with gastroenterology DVT: SCDs Charges/Coding Visit Charges Inpatient E&M: 33139 Subs Hosp L2
--- NOTE | 2022-07-25 11:30 | CASEMGMT ---
RN GUILLERMO Face to Face with patient for initial transition planning/care coordination assessment. RN CM introduced self and role at [facility]. Patient lying in bed, alert and oriented. Patient willing to participate in assessment and is able to answer all questions appropriately. Care providers, pharmacy, and demographics verified. Patient wishes to discharge home, denies need for home health at this time. Patient states she has no further needs or concerns at this time. CM to follow for discharge planning needs that may arise. 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 Patient is independent at home. Transportation: self, DME/HHC: Patient denies DME in the home. No previous HHC or SNF previously. Disposition Plan: Patient to discharge home with family support and follow-up plans in place. Kasandra POWELL, RN, CM
[2022-07-25] MEDS: Morphine 2 MG/ML Syringe IV (11:41)
[2022-07-25 15:56] VITALS: BP 106/66; PULSE 65; RESP 18; TEMP 36.6; O2SAT 97
[2022-07-25] MEDS: Senna/Docusate Sodium 1 Tablet 2 TABLET PO (16:11)
[2022-07-25] MEDS: Polyethylene Glycol 3350 17 GM PACKET PO (16:13)
--- NOTE | 2022-07-25 21:07 | PN.GI_ITS ---
Subjective Subjective Patient says that patient says that her pain is a lot better. She has been afebrile for the last 12 hours. She underwent MRCP. Objective Data Objective Data Vital Signs: Vital Signs Temp Pulse Resp BP Pulse Ox O2 Del Method 97.8 F 65 18 106/66 97 Room Air 07/25/22 15:56 07/25/22 15:56 07/25/22 15:56 07/25/22 15:56 07/25/22 15:56 07/25/22 15:56 Oxygen Delivery Method Room Air Weight: 201 lb 6.4 oz Body Mass Index (BMI) 32.5 Intake & Output: Intake and Output for Last 24 Hours 07/23/22 07/24/22 07/25/22 23:59 23:59 23:59 Intake Total 1050 / 1050 1348.33 / 1348.33 Balance 1050 / 1050 1348.33 / 1348.33 Lab / Micro Data Result Diagrams: 07/25/22 05:54 07/25/22 05:54 Labs: Laboratory Results - last 24 hr 07/25/22 05:54: WBC 4.2 L, RBC 4.19 L, Hgb 12.6, Hct 36.4 L, MCV 86.9, MCH 30.1, MCHC 34.6, RDW Std Deviation 39.8, RDW Coeff of Mila 12.4, Plt Count 182, MPV 9.1, Immature Gran % (Auto) 0.500, Neut % (Auto) 78.9 H, Lymph % (Auto) 10.9 L, [place] % (Auto) 9.3, Eos % (Auto) 0.2, Baso % (Auto) 0.2, Absolute Neuts (auto) 3.3, Absolute Lymphs (auto) 0.46 L, Nucleated RBC % 0, Differential Comment SCANNED, Diff Path Review June07/25/22 05:54: Sodium 136, Potassium 3.8, Chloride 105, Carbon Dioxide 26.0, Anion Gap 5, BUN 6 L, Creatinine 0.63, Estim Creat Clear Calc 111.12, Est GFR (MDRD) Af Amer 135, Est GFR (MDRD) Non-Af 112, BUN/Creatinine Ratio 9.6 L, Glucose 94, Calcium 8.2 L, Total Bilirubin 0.90, AST 151 H, ALT 119 H, Alkaline Phosphatase 150 H, Total Protein 6.3 L, Albumin 2.7 L, Globulin 3.6, Albumin/Globulin Ratio 0.8 L Radiography Diagnostic Testing: Radiology Impression MRCP 07/25/22 05:55 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 No stricture or stone. Electronically Signed: Eulogio Urbina MD at 13:27 EDT , Physical Exam Narrative General: Alert, Oriented x3, Cooperative, No apparent distress HEENT: Atraumatic, PERRLA, EOMI, Normocephalic Oral: Moist Mucosa Neck: Supple, No JVD Lungs: Clear to auscultation, Normal air movement, No rhonchi, No wheeze, No rales Cardiovascular: Regular rate, Regular Rhythm, Normal S1, Normal S2, No murmurs Abdomen: Soft, Non Tender, Non-Distended, No Hepato-splenomegaly Extremities: No edema, Capillary Refill Less than 3 Seconds Skin: No rashes, No breakdown Musculoskeletal: No Tenderness to Palpation of Joints or Extremities Neurological: Cranial nerves II-XII grossly intact, Motor Exam 5/5 strength throughout, Sensory exam intact to light touch and pain Psych/Mental Status: Flat Assessment & Plan Assessment/Plan (1) Cholangitis: (2) Acute liver disease: PLAN: Plan This is 41-year-old female being admitted for work-up of acute liver injury and dilated CBD. 1. Acute liver injury with suspected acute cholangitis: Patient has mixed hepatocellular and cholestatic liver injury pattern. No prior liver chemistry to compare. Patient is being admitted to [facility] floor. With fever and elevated liver chemistries high suspicion of acute cholangitis. Serum magnesium normal. Lactic acid 0.6. Lipase normal. Serum test negative. ESR a nd CRP elevated. IV fluid normal saline +20 mEq KCl. Monitor abdominal pain, liver chemistry electrolytes daily. GI consult. Right upper quadrant shows normal echogenicity of liver, bile duct within normal limit, hepatopetal flow and no demonstrated mass lesion. GB wall 1.8 mm, negative sonographic Dunham sign. No pericholecystic fluid or no gallstones. CBD dilated 8.[address] abdomen pelvis with IV contrast ordered by ED physician. 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 -Type 1 choledochol cyst- Subsequent to diagnosis, treatment of choledochal cysts aims to avoid the numerous hepatic, pancreatic, or biliary sequelae that may occur. Acute inflammatory conditions include cholangitis (this is what I think her current diagnosis is during this admission), liver abscess, acute pancreatitis, and sepsis must be resolved before consider treatment. Type I cysts should undergo complete cyst excision with Samantha-en-[id number] biliary- enteric reconstruction. The proximal and distal extent should be identified prior to resection to assist with operative strategy. Occasionally, the cyst may extend into the pancreatic head in which case the risk of residual david- dochal cyst must be weighed against the risk of pancreaticoduodenectomy. She should not undergo any elective procedure, such as a cholecystectomy prior to being seen by a hepatobiliary surgeon. She needs toshe needs to undergo surgery, because there is a very high risk of malignancy associated with a type one choledochocyst. 2. Hypotonic hypovolemic hyponatremia: Serum sodium is 129. Patient looks dehydrated. On IV fluid normal saline. K3.6 on low normal limit. K. Dur 1 dose ordered. Chronic hepatitis C: She is stated she has never been treated for. Outpatient follow-up and management. 3. Past history of IVDA: She quit substance use about 14 years ago. Charges/Coding Visit Charges Inpatient E&M: 28507 Subs Hosp L3
[2022-07-25] MEDS: MELATONIN 3 MG TABLET PO (23:58)
[2022-07-26 05:00] VITALS: BP 102/69; PULSE 65; RESP 18; TEMP 36.6; O2SAT 98
[2022-07-26] MEDS: Ondansetron 4 MG/2 ML Vial IV (05:29)
[2022-07-26 06:16] LABS: Absolute Lymphocyte Count 1.36 X10^3/uL (0.83-4.51); Basophil# 0.01 X10^3/uL; Basophil% 0.3 % (0-1); Eosinophil# 0.12 X10^3/uL; Hematocrit 35.7 % (37-47); Hemoglobin 12.1 g/dL (12.0-15.0); Lymphocyte # 1.36 X10^3/ul (0.83-4.51); Mean Corp Hgb Conc 33.9 g/dL (32-36); Mean Corpuscular Hgb 29.7 pg (27.0-32.0); Mean Corpuscular Volume 87.5 fL (81-99); Mean Platelet Vol. 8.7 fl (6.2-12.0); Monocyte# 0.48 X10^3/uL; Monocyte% 15.9 % (0-10); NRBC Flagged by Analyzer 0 % (0-5); Neutrophil # 1.04 X10^3/uL (2.7-7.7); Neutrophil % 34.5 % (47-70); POSITIVE MORPHOLOGY YES; Platelet Count 213 K/mm3 (150-450); RBC Distribution Width CV 12.6 % (11.6-14.6); RBC Distribution Width SD 40.4 fl (35.1-43.9); Red Blood Count 4.08 M/mm3 (4.2-5.4)
[2022-07-26 06:21] LABS: Differential Indicated SCAN CRITERIA MET
[2022-07-26 06:40] LABS: Anion Gap 9 (5-15); BUN 5 mg/dL (7-18); BUN/Creat Ratio 8.6 RATIO (10-20); Calcium,Total 8.8 mg/dL (8.5-10.1); Chloride 105 mmol/L (98-107); Creatinine, Serum 0.58 mg/dL (0.55-1.02); EST Glomerular Filtration Rate 121 mL/min (>60); Est Glom Filt Rate - Afr Amer 146 mL/min (>60); Glucose 87 mg/dL (74-106); Potassium 3.9 mmol/L (3.5-5.1); Sodium Level 140 mmol/L (136-145)
[2022-07-26 07:58] VITALS: BP 105/68; PULSE 57; RESP 16; TEMP 36.3; O2SAT 97
[2022-07-26 08:03] VITALS: O2SAT 97
[2022-07-26] MEDS: hydroCHLOROthiazide 25 MG Tablet PO (08:10)
[2022-07-26] MEDS: Polyethylene Glycol 3350 17 GM PACKET PO (08:10)
--- NOTE | 2022-07-26 09:21 | PCM.DC ---
Discharge Instructions Diet Discharge Diet: Low fat / Low cholesterol Activity Discharge Activity: Return to Normal Activity Dressing / Incision Call your doctor if you observe: Fever of 101 or Higher, Shortness of breath, Dizziness, Fainting spells, Swelling in the ankles, Chest pain and Increased palpitations (irregular heartbeat) Follow Up Care Test Results: Test results from this visit will be discussed in further detail at your follow-up appointment, if applicable. Discharge Plan Admission Admit Date/Time: 07/24/22 18:50 Attending Provider: Bertin Allison Primary Care Provider: Susan Warren NP Consulting Providers: Nabil Nava Discharge Orders/Prescriptions Prescriptions: New amoxicillin-pot clavulanate 875-125 mg tablet 1 tab PO BID Qty: 10 0RF Continued ibuprofen 200 mg Tablet 400 mg PO Q6H PRN (Reason: Pain) hydrochlorothiazide 25 mg tablet 25 mg PO DAILY Label Comments: TAKE 1 TABLET BY MOUTH EVERY MORNING buprenorphine-naloxone 8-2 mg film 2 film sublingual DAILY Label Comments: TAKE 2 FILMS SUBLINGUALLY DAILY Referrals / Follow Up: Nikole Elena MD [Med Staff - Active Staff] - Within 1 Month Susan Warren NP, CRYOGENICS ENGINEER-C [Primary Care Provider] - Within 1 Week [facility] Doctor,Out of [Non-Staff] - Disposition Disposition (needs filled in before D/C Order can be placed): Home, Self Care
--- NOTE | 2022-07-26 09:25 | DS.PCM_ITS ---
Providers Date of Admission: 07/24/22 Primary Care Physician: MANUELA Maravilla Consultations 07/24/22 21:29 Consult: Gastroenterology Routine Consulting Provider: Loc Gastroenterology Reason for Consult: elevated lft and dilated CBD EMERGENT Consult: No MD Notified: Yes Date Notified: 07/24/22 Time Notified: 18:56 Method of Notification: ED Physician Initiated Reason For Visit: DILATED CBD Diagnosis Discharge Diagnosis (1) Cholangitis: Status: Acute Code(s): K83.09 - Other cholangitis (2) Acute liver disease: Status: Acute Code(s): K76.9 - Liver disease, unspecified Medications at Discharge Home Medications buprenorphine 8 mg-naloxone 2 mg sublingual film 2 film sublingual DAILY . 07/24/22 hydrochlorothiazide 25 mg tablet 25 mg PO DAILY HTN 07/24/22 ibuprofen 200 mg tablet 400 mg PO Q6H PRN Pain 07/24/22 amoxicillin 875 mg-potassium clavulanate 125 mg tablet 1 tab PO BID #10 tabs 07/26/22 Hospital Course Operations None Procedures None Summary of Care Provided Minutes Spent on Discharge: 33 Hospital Course: Per HPI: SEBASTIÁN LEE, is a 41 F started having nausea and sudden onset right upper quadrant abdominal pain on 07/20/2022.? She denies prior history of gallbladder or hepatobiliary or pancreatic issues or abdominal pain like this in the past.? She was diagnosed with hepatitis C about 10 years ago.? She had history of IVDA and she quit 14 years ago.? She is reluctant talking about that. Abdominal pain is started about 10/density, right subcostal margin and then became generalized and moved to the right upper chest.? She claims pain is constant but has eased over last 5 days.? She also having fever for last 3 to 4 days and she measures it.? She said it stays between 99.7 to 100 ?F.? She also has associated nausea but denies vomiting, hematemesis melena.? She has constipation has not moved bowels since 07/19/2022. Patient recently started takin g ibuprofen for abdominal pain but is not getting better. In ED, she was tachycardic but afebrile.? Liver chemistry reviewed and shows elevated liver enzymes, total bilirubin and alkaline phosphatase. She had ultrasound as an outpatient results dilated CBD 10 mm but no stone and was sent to ED for further work-up. Past medical history: Hypertension on HCTZ.? IVDA/substance use disorder in the past on buprenorphine. Social history: She denies chronic alcohol use.? She denies a smoking.? History of polysubstance use as mentioned above. Family history denies history of hepatobiliary cancer or chronic pancreatitis in the family.? On her mother side, she had cholecystectomy in few family members. Hospital Course: 1. Acute cholangitis secondary to common bile duct stone?41-year-old female presented to the hospital with right upper quadrant abdominal pain and elevated LFTs. Findings are consistent with acute cholangitis secondary to a common bile duct stone. She had an MRCP which demonstrated that the obstruction had resolved. Gastroenterology was consulted and at this time do not feel the need to do an ERCP secondary to the normal findings on the MRCP. This case was discussed with him and he felt that she could be discharged home if she was tolerating a p.o. diet which she has. Pain is completely resolved. We will plan for 5 more days of p.o. Augmentin and I do recommend that she follow-up with her PCP as well as general surgery as an outpatient to discuss possibility of a cholecystectomy. 2. Chronic hepatitis C?she is never been treated recommend outpatient follow-up with gastroenterology for this issue. Physical Exam Narrative General: Alert, Oriented x3, Cooperative, No apparent distress HEENT: Atraumatic, PERRLA, EOMI, Normocephalic Oral: Moist Mucosa Neck: Supple, No JVD Lungs: Clear to auscultation, Normal air movement, No rhonchi, No wheeze, No rales Cardiovascular: Regular rate, Regular Rhythm, Normal S1, Normal S2, No murmurs Abdomen: Soft, Non Tender, Non-Distended, No Hepato-splenomegaly Extremities: No edema, Capillary Refill Less than 3 Seconds Skin: No rashes, No breakdown Musculoskeletal: No Tenderness to Palpation of Joints or Extremities Neurological: Cranial nerves II-XII grossly intact, Motor Exam 5/5 strength t hroughout, Sensory exam intact to light touch and pain Psych/Mental Status: Flat Weight / BMI Weight Weight: 201 lb 6.4 oz Body Mass Index (BMI) 32.5 ABG / Lab / Microbiology Data Result Diagrams: 07/26/22 05:30 07/26/22 05:30 Laboratory: Laboratory Results - last 24 hr 07/26/22 05:30: WBC 3.0 L, RBC 4.08 L, Hgb 12.1, Hct 35.7 L, MCV 87.5, MCH 29.7, MCHC 33.9, RDW Std Deviation 40.4, RDW Coeff of Mila 12.6, Plt Count 213, MPV 8.7, Immature Gran % (Auto) 0.300, Neut % (Auto) 34.5 L, Lymph % (Auto) 45.0 H, [place] % (Auto) 15.9 H, Eos % (Auto) 4.0, Baso % (Auto) 0.3, Absolute Neuts (auto) 1.0 L, Absolute Lymphs (auto) 1.36, Nucleated RBC % 0 07/26/22 05:30: Sodium 140, Potassium 3.9, Chloride 105, Carbon Dioxide 26.0, Anion Gap 9, BUN 5 L, Creatinine 0.58, Estim Creat Clear Calc 120.70, Est GFR (MDRD) Af Amer 146, Est GFR (MDRD) Non-Af 121, BUN/Creatinine Ratio 8.6 L, Glucose 87, Calcium 8.8 Radiography Diagnostic Testing: Radiology Impression MRCP 07/25/22 05:55 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 No stricture or stone. Electronically Signed: Eulogio Urbina MD at 13:27 EDT , D/C Instructions Discharge Diet: Low fat / Low cholesterol Call your doctor if you observe: Fever of 101 or Higher, Shortness of breath, Dizziness, Fainting spells, Swelling in the ankles, Chest pain and Increased palpitations (irregular heartbeat) Meaningful Use Info Meaningful Use Diagnoses (Choose all that apply): None applicable Discharge Plan Admission Admit Date/Time: 07/24/22 18:50 Attending Provider: Bertin Allison Primary Care Provider: Susan Warren NP Consulting Providers: Nabil Nava Discharge Orders/Prescriptions Prescriptions: New amoxicillin-pot clavulanate 875-125 mg tablet 1 tab PO BID Qty: 10 0RF Continued ibuprofen 200 mg Tablet 400 mg PO Q6H PRN (Reason: Pain) hydrochlorothiazide 25 mg tablet 25 mg PO DAILY Label Comments: TAKE 1 TABLET BY MOUTH EVERY MORNING buprenorphine-naloxone 8-2 mg film 2 film sublingual DAILY Label Comments: TAKE 2 FILMS SUBLINGUALLY DAILY Referrals / Follow Up: Nikole Elena MD [Med Staff - Active Staff] - Within 1 Month Susan Warren NP, SPEEDER TENDER-C [Primary Care Provider] - Within 1 Week [facility] Doctor,Out of [Non-Staff] - Sam Rose DO [Med Staff - Active Staff] - Within 3 Months Disposition Disposition (needs filled in before D/C Order can be placed): Home, Self Care Charges/Coding Visit Charges Inpatient E&M: 82669 Disch Hosp >30min
[2022-07-26 10:15] VITALS: BP 105/69; PULSE 74; RESP 16; TEMP 36.5; O2SAT 96
[2022-07-27 12:30] LABS: Pathologist Review Reviewed
== END 2022-07-26 10:41 | disposition home or self-care (01) | DRG 445 ==
LOC: ED 18:08 → MS3 19:11
PROVIDERS: Internal Medicine Gastroenterology; Physician Assistant; Admitting Provider Internal Medicine; Emergency Provider Emergency Medicine; PCP Nurse Practitioner Family; Visit Provider Family Medicine
DX: K80.32 Calculus of bile duct with acute cholangitis without obstruction (principal); E87.1 Hypo-osmolality and hyponatremia; B18.2 Chronic viral hepatitis C; I10 Essential (primary) hypertension; E86.1 Hypovolemia; Z79.899 Other long term (current) drug therapy; Z79.891 Long term (current) use of opiate analgesic
CPT/HCPCS: 36415; 74177; 74181; 76705; 80048; 80053; 83605; 83690; 83735; 84703; 85025; 85652; 86140; 87040; 93005; 94668; 99284; J7030; Q9967; A4216; J2405

== ENCOUNTER → 2022-07-31 | Outpatient (CLI) | payer OTHER, SELFPAY ==
[2022-07-31 16:30] LABS: AST(SGOT) 64 U/L (15-37); Alanine Aminotransfer ALT/SGPT 86 U/L (13-56); Albumin, Serum 3.5 g/dL (3.2-5.0); Alkaline Phosphatase 117 U/L (45-117); Globulin 4.1 g/dL (2.2-4.2); Protein, Total 7.6 g/dL (6.4-8.2)
== END | disposition home or self-care (01) ==
LOC: LAB 14:52
PROVIDERS: PCP Nurse Practitioner Family; Visit Provider Surgery
DX: R79.89 Other specified abnormal findings of blood chemistry (principal); B19.20 Unspecified viral hepatitis C without hepatic coma
CPT/HCPCS: 36415; 80076